=== PATIENT | female | born 1955 | race Hispanic/Latino ===

== ENCOUNTER 2021-03-23 23:41 | Emergency (ER) | payer MEDICARE ==
[~2021-03-23] VITALS: Ht 149.9 cm; Wt 76.6 kg
[~2021-03-23 23:41] MED LIST: ALBUTEROL2.5 MG/3 M INH; AUGMENTIN 875-1 EACH PO; AZELASTINE137 MCG/0. NAS; CETIRIZINE HCL10 MG PO; COMPLETE OMEGA1 EACH PO; FLOVENT HFA12 G1 INH; FLUTICASONE PRO16 GM NS; LOSARTAN POTASS25 MG PO; LOVASTATIN20 MG PO; NORCO 5-325 TA1 EACH PO; PREDNISONE20 MG PO; PROAIR HFA8.5 GM INH; PROTONIX40 MG PO; RESTASIS1 DROP OD; ROBITUSSIN COU118 M4 PO; SYNTHROID112 MCG PO; TOBRAMYCIN5 ML OD; VITAMIN B COMP1 EAC1 PO; VITAMIN C1000 MG; ZOFRAN4 MG PO
--- OUTSIDE RECORDS SUMMARY | 2021-03-23 23:44 | XMS ---
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 [facility] VISIT COUNT (12 MO.) 1 VERONICA Garcia TOTAL 1 NOTE: Visits indicate total known visits. ED/UCC VISIT TRACKING (12 MO.) 03/23/2021 23:42 VERONICA Florez OR TYPE: Emergency COMPLAINT: - BLOOD PRESSURE ISSUES INPATIENT VISIT TRACKING (12 MO.) No inpatient visits to display in this time frame [email or web address]
--- NOTE | 2021-03-26 14:57 | EKG ---
[facility] [address] [place], [place] [address] Signed Normal sinus rhythm Normal ECG No previous ECGs available Confirmed by ZARA LINDO MD ([id number]) on 03/26/2021 2:57:48 PM Electronically Signed By: ZARA LINDO MD 03/26/21 1457 PATIENT NAME: ARIELLE VELÁSQUEZ Electrocardiogram DATE OF : 51 PHYSICIAN: ZARA LINDO MD REPORT #: [id number] REPORT IS CONFIDENTIAL AND NOT TO BE RELEASED WITHOUT AUTHORIZATION
== END 2021-03-24 02:33 | disposition short-term general hospital (02) ==
LOC: ED 23:41
DX: I21.4 Non-ST elevation (NSTEMI) myocardial infarction (principal); Z88.1 Allergy status to other antibiotic agents; Z88.8 Allergy status to other drugs, medicaments and biological substances; Z79.899 Other long term (current) drug therapy
CPT/HCPCS: 71046; 80053; 83735; 84484; 85025; 85379; 85610; 85730; 93005; 93010; 96374; 99284-25; C9803; J1644; U0003